=== PATIENT | male | born 1960 | race Caucasian/White ===

== ENCOUNTER 2017-09-12 19:04 | Emergency (ER) | payer OTHER ==
[~2017-09-12] VITALS: Ht 180.3 cm; Wt 114.7 kg
[2017-09-12 20:00] LABS: HEMATOCRIT 43.6 % (38.0-50.0); MCH 32.3 PG (29.0-34.0); MCHC 34.4 G/DL (30.0-36.0); MCV 93.8 FL (86-99); PLATELET COUNT 242 K/uL (156-360); RBC DIS.WIDTH-CV 11.8 % (11.8-14.6); RBC DIS.WIDTH-SD 40.8 % (39-53); RED BLOOD COUNT 4.65 M/uL (4.00-5.50); WHITE BLOOD COUNT 12.5 K/uL (4.1-10.2)
[2017-09-12 20:25] LABS: CHLORIDE 102 mEq/L (99-109); POTASSIUM 3.8 mEq/L (3.7-5.4); SODIUM 138 mEq/L (136-147)
[2017-09-12 20:26] LABS: GLUCOSE 109 mg/dL (70-99)
[2017-09-12 20:30] LABS: CREATININE 0.8 mg/dL (0.6-1.3); GFR ESTIMATE (CALCULATED) > 59 mL/min/ (58.99-99999)
[2017-09-12 20:31] LABS: UREA NITROGEN (BUN) 13 mg/dL (9-23)
[2017-09-12] MEDS ORDERED: CLEOCIN300 MG PO (20:40)
[2017-09-12] MEDS ORDERED: PERCOCET 5/31 TABLET PO (20:46)
[2017-09-12 21:37] VITALS: BP 166/89
== END 2017-09-12 21:42 | disposition home or self-care (01) ==
LOC: EME → EDBD 19:04 → EME 21:42
PROVIDERS: Emergency Medicine
DX: K04.7 Periapical abscess without sinus (principal); I10 Essential (primary) hypertension; E78.5 Hyperlipidemia, unspecified
CPT/HCPCS: 80048; 83605; 85027; 87040; 99281; 99285; J2270; J7040